=== PATIENT | female | born 1960 | race African-American/Black ===

== ENCOUNTER 2022-10-31 09:36 | Emergency (ER) | payer BC ==
[~2022-10-31] VITALS: Ht 177.8 cm; Wt 79.8 kg
--- NOTE | 2022-10-31 10:00 | NUR ---
BIB [facility] 80 FROM OUTSIDE A SCHOOL S/P SZ EPISODE, SHE STATES THAT SHE DOESN'T TAKE SEIZURE MEDS SINCE HER SEIZURES ARE TRIGGERED AND DUE TO INCREASED STRESS LIKE WHAT'S HAPPENING NOW SINCE THEIR SCHOOL IS ON STRIKE.
--- NOTE | 2022-10-31 10:05 | NUR ---
PT ASLEEPY RESPIRATION SPONT AND EASY
--- NOTE | 2022-10-31 10:15 | NUR ---
NO ACTIVE SEIZURE
--- NOTE | 2022-10-31 10:30 | NUR ---
SEEN BY DR. GARZA
--- NOTE | 2022-10-31 11:03 | NUR ---
IV removed. Catheter intact and site benign. Pressure and 4x4 applied to site. No bleeding noted.
--- NOTE | 2022-10-31 11:05 | NUR ---
Patient discharged to home in stable condition. Written and verbal after care instructions given. Patient verbalizes understanding of instruction.
[2022-10-31 11:09] VITALS: BP 127/72
== END 2022-10-31 11:30 | disposition home or self-care (01) ==
LOC: ER 10:00
DX: R56.9 Unspecified convulsions (principal); M19.90 Unspecified osteoarthritis, unspecified site; Z88.0 Allergy status to penicillin; Z60.2 Problems related to living alone